=== PATIENT | female | born 1950 | race Caucasian/White ===

== ENCOUNTER 2020-04-03 04:51 | Inpatient (IN) | payer OTHER ==
[~2020-04-03] VITALS: Ht 157.5 cm; Wt 69.5 kg
[2020-04-03] MEDS ORDERED: CLOPIDOGREL BISULFATE 75 MG TAB ONE (05:17)
[2020-04-03] MEDS ORDERED: HEPARIN SODIUM (PORCINE) 5000 UNITS/ML 1ML VIAL ONE (05:17)
[2020-04-03] MEDS ORDERED: ATORVASTATIN 20 MG TAB ONE (05:17)
[2020-04-03] MEDS ORDERED: ASPirin 325 MG TAB ONE (05:18)
[2020-04-03] MEDS ORDERED: MORPHINE SULF INJ 2 MG/ML SYRINGE 1ML ONE (05:18)
[2020-04-03 05:29] LABS: Basophils # (auto) 0 10 ^3/uL (0-0.2); Basophils % (auto) 0.4 % (0.0-2.0); Eosinophils # (auto) 0.1 10 ^3/uL (0-0.8); Eosinophils % (auto) 1.3 % (0.0-7.0); Hemoglobin 13.9 g/dL (12.2-16.2); Lymphocytes # (auto) 1.4 10 ^3/uL (0.4-5.4); Lymphocytes % (auto) 16.6 % (10.0-50.0); Mean Corpuscular Hemoglobin 29.6 pg (28.0-32.0); Mean Corpuscular Hgb Conc. 33.1 g/dL (32.0-36.0); Mean Corpuscular Volume 89.4 fL (80.0-100.0); Monocytes # (auto) 0.6 10 ^3/uL (0-1.3); Monocytes % (auto) 6.5 % (0.0-12.0); Neutrophils # (auto) 6.4 10 ^3/uL (1.6-8.6); Neutrophils % (auto) 75.2 % (37.0-80.0); Nucleated Red Blood Cells % 0.1 %; Platelet Count (auto) 217 10^3/uL (140-450); Red Cell Distribution Width 14.8 % (11.8-14.3); White Blood Cell 8.5 10^3/uL (4.4-10.8)
[2020-04-03] MEDS ORDERED: ATORVASTATIN 20 MG TAB PO ONE (05:30)
[2020-04-03] MEDS ORDERED: HEPARIN 1,000 UNITS/ml 1ML VIAL IV ONE (05:30)
[2020-04-03] MEDS ORDERED: CLOPIDOGREL 300 MG TAB PO ONE (05:30)
[2020-04-03] MEDS ORDERED: MORPHINE SULF INJ 2 MG/ML SYRINGE 1ML IV ONE (05:30)
[2020-04-03] MEDS ORDERED: ASPirin 81 mg TAB ONE ×2 (05:34→07:08)
[2020-04-03] MEDS ORDERED: LIDOCAINE 2%HCL (LOCAL ANESTH.) INJ 20ML MDV ONE (05:37)
[2020-04-03] MEDS ORDERED: IODIXANOL 320MG/ML 100ML BTL IV ONE (05:37)
[2020-04-03] MEDS ORDERED: ANGIOMAX 250 MG VIAL IV ONE (05:38)
[2020-04-03] MEDS ORDERED: SODIUM CHL 0.9% 50 ML ONE (05:39)
[2020-04-03] MEDS ORDERED: fentaNYL CITRATE 100 MCG/2 ML VL ONE (05:39)
[2020-04-03] MEDS ORDERED: MIDAZOLAM HCL 1MG/1ML-2 ML VIAL ONE (05:39)
[2020-04-03] MEDS: ASPirin-EC 81 mg tab PO SCH ×2 (05:40→07:32)
[2020-04-03] MEDS ORDERED: diphenhdrAMINE HCL 50 MG/1 ML VL ONE (05:42)
[2020-04-03] MEDS ORDERED: FAMOTIDINE (10MG/ML) 2ML VL IV ONE (05:42)
[2020-04-03] MEDS ORDERED: methylPREDNISolone SOD SUCC 125 MG/2 ML VL ONE (05:42)
[2020-04-03 05:44] LABS: INR 0.92 (0.9-1.15); Partial Thromboplastin Time 22.2 sec (23.0-31.2)
[2020-04-03 06:00] LABS: Albumin 4.1 g/dL (3.4-5.0); BUN/Creatinine Ratio 13.7; Calcium 8.7 mg/dL (8.5-10.1); Potassium 4.7 mmol/L (3.5-5.1)
[2020-04-03 06:09] LABS: Bilirubin, Total 0.3 mg/dL (0.2-1.0); Total Protein 8.5 g/dL (6.4-8.2)
[2020-04-03] MEDS ORDERED: EPTIFIBATIDE INJ (2MG/ML) 10ML VIAL IV ONE (06:15)
[2020-04-03] MEDS ORDERED: CLOPIDOGREL 300 MG TAB ONE (07:08)
[2020-04-03] MEDS: SOD CHL 0.45% 1,000 ML IV SCH ×2 (07:45→21:38)
[2020-04-03] MEDS ORDERED: HYDROcodone-ACET 5/325MG TAB PO PRN (07:45)
[2020-04-03] MEDS ORDERED: DEXTROSE (50%) 50ML SYRG IV PRN (07:45)
[2020-04-03] MEDS ORDERED: ONDANSETRON HCL 4 MG/2 ML VIAL IV ONE (07:45)
[2020-04-03] MEDS ORDERED: ACETAMINOPHEN 500 MG TAB PO PRN (07:45)
[2020-04-03] MEDS ORDERED: ASPirin 325 MG TAB PO SCH (10:00)
[2020-04-03] MEDS: InsuLIN REG 1unit/0.01ml Soln (100units/ml) SC SCH ×3 (11:30→21:43)
[2020-04-03] MEDS: ACCU-CHEK COMFORT CURVE STRIP VI SCH ×3 (11:30→21:39)
[2020-04-03] MEDS ORDERED: FLUO40CA PO (13:11)
[2020-04-03] MEDS ORDERED: FLUT500M2 INH (13:11)
[2020-04-03] MEDS ORDERED: ISOS30TA4 PO (13:11)
[2020-04-03] MEDS ORDERED: ERGO1CAP12 PO (13:11)
[2020-04-03] MEDS ORDERED: METO25TA5 PO (13:11)
[2020-04-03] MEDS ORDERED: CLOP75TA28 PO (13:11)
[2020-04-03] MEDS ORDERED: MORPHINE SULF INJ 2 MG/ML SYRINGE 1ML IV PRN ×2 (13:15→15:00)
[2020-04-03] MEDS ORDERED: PANT40TA2 PO (13:20)
[2020-04-03] MEDS ORDERED: INSUINJ2 SC (13:20)
[2020-04-03] MEDS ORDERED: GABA300C10 PO (13:20)
[2020-04-03] MEDS ORDERED: DICY10CA PO (13:21)
[2020-04-03] MEDS ORDERED: ONDA-144 PO (13:23)
[2020-04-03] MEDS ORDERED: SPIR25TA PO (13:23)
[2020-04-03] MEDS ORDERED: ALBUAER3 IN (13:23)
[2020-04-03] MEDS ORDERED: NITR0.4S29 SL (13:23)
[2020-04-03] MEDS ORDERED: LID35TP EX (13:24)
[2020-04-03] MEDS ORDERED: CYCL0.09 OP (13:24)
[2020-04-03] MEDS ORDERED: LORA-205 PO (13:24)
[2020-04-03] MEDS ORDERED: ONDANSETRON HCL 4 MG/2 ML VIAL IV PRN (15:00)
[2020-04-03 15:32] LABS: Cholesterol 197 mg/dL (< 200); HDL Cholesterol 46 mg/dL (40-59); LDL Cholesterol 136 mg/dL (< 100); Triglycerides 134 mg/dL (< 150)
[2020-04-03] MEDS ORDERED: diphenhdrAMINE HCL 25 MG CAP PO ONE (21:15)
[2020-04-03] MEDS: GABAPENTIN 300 MG CAP PO SCH (21:38)
[2020-04-03] MEDS: ATORVASTATIN 20 MG TAB PO SCH (21:38)
[2020-04-03 22:00] VITALS: BP 130/73
[2020-04-03] MEDS: LORazepam 0.5 MG TAB PO PRN (22:13)
[2020-04-04 05:00] VITALS: BP 92/60
[2020-04-04 06:27] LABS: Basophils # (auto) 0 10 ^3/uL (0-0.2); Basophils % (auto) 0.1 % (0.0-2.0); Eosinophils # (auto) 0 10 ^3/uL (0-0.8); Hematocrit 33.1 % (36.0-46.0); Lymphocytes # (auto) 1.9 10 ^3/uL (0.4-5.4); Lymphocytes % (auto) 15.7 % (10.0-50.0); Mean Corpuscular Hemoglobin 29.2 pg (28.0-32.0); Mean Corpuscular Hgb Conc. 33.1 g/dL (32.0-36.0); Mean Corpuscular Volume 88.4 fL (80.0-100.0); Monocytes % (auto) 8.4 % (0.0-12.0); Neutrophils % (auto) 75.8 % (37.0-80.0); Platelet Count (auto) 197 10^3/uL (140-450); Red Blood Cells 3.75 10^6/uL (4.0-5.20); Red Cell Distribution Width 14.7 % (11.8-14.3); White Blood Cell 11.9 10^3/uL (4.4-10.8)
[2020-04-04 06:42] LABS: Potassium 4.5 mmol/L (3.5-5.1)
[2020-04-04 06:59] LABS: Calcium 8.7 mg/dL (8.5-10.1)
[2020-04-04] MEDS: InsuLIN REG 1unit/0.01ml Soln (100units/ml) SC SCH ×4 (07:00→22:00)
[2020-04-04] MEDS: ACCU-CHEK COMFORT CURVE STRIP VI SCH ×4 (07:29→22:00)
[2020-04-04 08:00] VITALS: BP 101/56
[2020-04-04] MEDS ORDERED: IOHEXOL 350 MG/ML 100ML IJ ONE ×2 (08:13→10:08)
[2020-04-04] MEDS ORDERED: LIDOCAINE 2%HCL (LOCAL ANESTH.) INJ 20ML MDV ONE (09:30)
[2020-04-04] MEDS ORDERED: methylPREDNISolone SOD SUCC 125 MG/2 ML VL ONE (09:44)
[2020-04-04] MEDS ORDERED: FAMOTIDINE (10MG/ML) 2ML VL IV ONE (09:45)
[2020-04-04] MEDS ORDERED: diphenhdrAMINE HCL 50 MG/1 ML VL ONE (09:45)
[2020-04-04] MEDS ORDERED: SODIUM CHL 0.9% 0 ML ONE (10:06)
[2020-04-04] MEDS ORDERED: NITROGLYCERIN 5MG/ML 10ML VIAL IV ONE (10:06)
[2020-04-04] MEDS ORDERED: MIDAZOLAM HCL 1MG/1ML-2 ML VIAL ONE (10:14)
[2020-04-04] MEDS ORDERED: fentaNYL CITRATE 100 MCG/2 ML VL ONE (10:15)
[2020-04-04] MEDS: ASPirin-EC 81 mg tab PO SCH (11:41)
[2020-04-04] MEDS: CLOPIDOGREL BISULFATE 75 MG TAB PO SCH (11:42)
[2020-04-04] MEDS: GABAPENTIN 300 MG CAP PO SCH ×2 (11:42→21:27)
[2020-04-04] MEDS: FLUoxetine HCL 20 MG CAP PO SCH (11:43)
[2020-04-04] MEDS: PANTOPRAZOLE 40 MG/10 ML VIAL INJ IV SCH (11:43)
[2020-04-04] MEDS: METOPROLOL SUCCINATE XL 50 MG TAB PO SCH (11:43)
[2020-04-04 16:00] VITALS: BP 120/62
[2020-04-04] MEDS: SOD CHL 0.45% 1,000 ML IV SCH ×2 (17:45→23:45)
[2020-04-04 20:00] VITALS: BP 101/66
[2020-04-04] MEDS: LORazepam 0.5 MG TAB PO PRN (21:24)
[2020-04-04] MEDS: ATORVASTATIN 20 MG TAB PO SCH (21:26)
[2020-04-04 22:02] VITALS: BP 103/56
[2020-04-05 05:00] VITALS: BP 113/66
[2020-04-05] MEDS: ACCU-CHEK COMFORT CURVE STRIP VI SCH ×2 (06:40→10:58)
[2020-04-05] MEDS: InsuLIN REG 1unit/0.01ml Soln (100units/ml) SC SCH ×2 (06:40→10:58)
[2020-04-05] MEDS: METOPROLOL SUCCINATE XL 50 MG TAB PO SCH (10:00)
[2020-04-05] MEDS: CLOPIDOGREL BISULFATE 75 MG TAB PO SCH (10:00)
[2020-04-05] MEDS: ASPirin-EC 81 mg tab PO SCH (10:49)
[2020-04-05] MEDS: PANTOPRAZOLE 40 MG/10 ML VIAL INJ IV SCH (10:49)
[2020-04-05] MEDS: GABAPENTIN 300 MG CAP PO SCH (10:49)
[2020-04-05] MEDS: FLUoxetine HCL 20 MG CAP PO SCH (10:50)
[2020-04-05 11:37] VITALS: BP 108/56
[2020-04-05] MEDS: SOD CHL 0.45% 1,000 ML IV SCH (13:05)
== END 2020-04-05 14:14 | disposition home or self-care (01) | DRG 229 ==
LOC: ER 04:51 → CATH 04:52 → TELE 04:53 → TELE-CENTR 18:14
PROVIDERS: ADMIT Specialist; ATTEND Specialist
PROC: 4A023N7 Measurement of Cardiac Sampling and Pressure, Left Heart, Percutaneous Approach (ICD-10-PCS; principal; 2020-04-03)
PROC: 02C00ZZ Extirpation of Matter from Coronary Artery, One Artery, Open Approach (ICD-10-PCS; 2020-04-03)
PROC: 027035Z Dilation of Coronary Artery, One Artery with Two Drug-eluting Intraluminal Devices, Percutaneous Approach (ICD-10-PCS; 2020-04-03)
PROC: B2151ZZ Fluoroscopy of Left Heart using Low Osmolar Contrast (ICD-10-PCS; 2020-04-03)
PROC: B2111ZZ Fluoroscopy of Multiple Coronary Arteries using Low Osmolar Contrast (ICD-10-PCS; 2020-04-03)
PROC: B41F1ZZ Fluoroscopy of Right Lower Extremity Arteries using Low Osmolar Contrast (ICD-10-PCS; 2020-04-03)
DX: I21.19 ST elevation (STEMI) myocardial infarction involving other coronary artery of inferior wall (principal); D64.9 Anemia, unspecified; E11.22 Type 2 diabetes mellitus with diabetic chronic kidney disease; E78.5 Hyperlipidemia, unspecified; F32.9 Major depressive disorder, single episode, unspecified; F41.9 Anxiety disorder, unspecified; G62.9 Polyneuropathy, unspecified; I13.10 Hypertensive heart and chronic kidney disease without heart failure, with stage 1 through stage 4 chronic kidney disease, or unspecified chronic kidney disease; I25.10 Atherosclerotic heart disease of native coronary artery without angina pectoris; N18.30 Chronic kidney disease, stage 3 unspecified; Z79.02 Long term (current) use of antithrombotics/antiplatelets; Z79.4 Long term (current) use of insulin; Z79.51 Long term (current) use of inhaled steroids; Z79.82 Long term (current) use of aspirin; Z79.899 Other long term (current) drug therapy; Z90.710 Acquired absence of both cervix and uterus; Z95.5 Presence of coronary angioplasty implant and graft; Z98.84 Bariatric surgery status; Z90.49 Acquired absence of other specified parts of digestive tract; Z98.891 History of uterine scar from previous surgery; Z88.8 Allergy status to other drugs, medicaments and biological substances; Z91.041 Radiographic dye allergy status; Z98.51 Tubal ligation status; Z95.818 Presence of other cardiac implants and grafts; Z83.3 Family history of diabetes mellitus; Z82.49 Family history of ischemic heart disease and other diseases of the circulatory system
CPT/HCPCS: 36415; 71045; 80048; 80053; 80061; 82962; 83036; 83880; 84484; 85025; 85610; 85730; 86850; 86900; 86901; 93005; 93306; 99152; 99153; 99291; C1874; C9113; G0378; J1815; J2250; J3490; Q9967

== ENCOUNTER 2020-05-23 05:33 | Emergency (ER) | payer OTHER ==
[~2020-05-23] VITALS: Ht 157.5 cm; Wt 63.5 kg
[~2020-05-23 05:33] MED LIST: ALBUAER3 IN; CLOP75TA28 PO; CYCL0.09 OP; DICY10CA PO; ERGO1CAP12 PO; FLUO40CA PO; FLUT500M2 INH; GABA300C10 PO; INSUINJ2 SC; ISOS1TAB28 PO; LID35TP EX; LORA-205 PO; METO25TA5 PO; NITR0.4S29 SL; ONDA-144 PO; PANT40TA2 PO; SPIR25TA PO
[2020-05-23] MEDS ORDERED: ASPirin 81 mg TAB PO ONE ×2 (06:00)
[2020-05-23] MEDS ORDERED: SPIRONOLACTONE 25 MG TAB PO ONE (06:15)
[2020-05-23] MEDS ORDERED: METOPROLOL TARTRATE 25 MG TAB PO ONE (06:15)
[2020-05-23 06:25] LABS: Basophils # (auto) 0 10 ^3/uL (0-0.2); Basophils % (auto) 0.5 % (0.0-2.0); Eosinophils # (auto) 0.2 10 ^3/uL (0-0.8); Eosinophils % (auto) 3.8 % (0.0-7.0); Hematocrit 38.9 % (36.0-46.0); Lymphocytes % (auto) 35.6 % (10.0-50.0); Mean Corpuscular Hemoglobin 29.3 pg (28.0-32.0); Mean Corpuscular Hgb Conc. 33.4 g/dL (32.0-36.0); Mean Corpuscular Volume 87.5 fL (80.0-100.0); Monocytes # (auto) 0.5 10 ^3/uL (0-1.3); Monocytes % (auto) 8.3 % (0.0-12.0); Neutrophils # (auto) 2.9 10 ^3/uL (1.6-8.6); Neutrophils % (auto) 51.8 % (37.0-80.0); Nucleated Red Blood Cells % 0.2 %; Red Blood Cells 4.45 10^6/uL (4.0-5.20); Red Cell Distribution Width 14.5 % (11.8-14.3); White Blood Cell 5.5 10^3/uL (4.4-10.8)
[2020-05-23 06:31] LABS: Alanine Aminotransferase 31 U/L (13-56); Albumin 3.8 g/dL (3.4-5.0); Anion Gap 8 (5-15); Aspartate Aminotransferase 25 U/L (15-37); BUN/Creatinine Ratio 10.7; Blood Urea Nitrogen 11 mg/dL (7-18); Carbon Dioxide 25 mmol/L (21-32); Chloride 104 mmol/L (98-107); GFR African American 69 mL/min; GFR Non-African American 57 mL/min; Glucose 121 mg/dL (74-106); Magnesium 2.2 mg/dL (1.6-2.6); Potassium 4.6 mmol/L (3.5-5.1); Sodium 137 mmol/L (136-145)
[2020-05-23 06:33] LABS: INR 0.97 (0.9-1.15); Partial Thromboplastin Time 22.8 sec (23.0-31.2)
[2020-05-23 06:39] LABS: Alkaline Phosphatase 133 U/L (45-117); Bilirubin, Total 0.6 mg/dL (0.2-1.0); Total Protein 7.6 g/dL (6.4-8.2)
[2020-05-23] MEDS ORDERED: ONDANSETRON HCL 4 MG/2 ML VIAL IV ONE (07:30)
[2020-05-23] MEDS ORDERED: MORPHINE SULFATE INJECTION 2 MG/ML SYRG IV ONE (07:30)
[2020-05-23 07:46] LABS: Urine Bacteria NONE SEEN /hpf (None Seen); Urine Blood Negative /uL (Negative); Urine Specific Gravity 1.005 (1.001-1.035); Urine WBC 1 /hpf (0 - 5)
[2020-05-23 11:03] VITALS: BP 133/55
== END 2020-05-23 11:19 | disposition home or self-care (01) ==
LOC: ER 05:33
DX: R00.1 Bradycardia, unspecified (principal); R07.89 Other chest pain; N39.0 Urinary tract infection, site not specified; I50.9 Heart failure, unspecified; I11.0 Hypertensive heart disease with heart failure; E11.9 Type 2 diabetes mellitus without complications; E78.5 Hyperlipidemia, unspecified; Z90.49 Acquired absence of other specified parts of digestive tract; Z90.710 Acquired absence of both cervix and uterus
CPT/HCPCS: 36415; 71045; 80053; 81001; 82962; 83735; 83880; 84443; 84484; 85025; 85610; 85730; 93005; 96374; 96375; 99285; J2270; J2405

== ENCOUNTER 2023-08-06 16:26 | Emergency (ER) | payer OTHER ==
[~2023-08-06] VITALS: Ht 157.5 cm; Wt 56.8 kg
[~2023-08-06 16:26] MED LIST changes: +GABA-1250 PO; -GABA300C10 PO
[2023-08-06] MEDS: NITROGLYCERIN 0.4 MG SL TAB SL ONE (17:09)
[2023-08-06 17:20] LABS: Basophils # (auto) 0 10 ^3/uL (0-0.2); Basophils % (auto) 0.3 % (0.0-2.0); Eosinophils # (auto) 0.2 10 ^3/uL (0-0.8); Eosinophils % (auto) 2.6 % (0.0-7.0); Hematocrit 36.4 % (36.0-46.0); Hemoglobin 11.8 g/dL (12.2-16.2); Lymphocytes # (auto) 2.8 10 ^3/uL (0.4-5.4); Lymphocytes % (auto) 37.1 % (10.0-50.0); Mean Corpuscular Hemoglobin 28.5 pg (28.0-32.0); Mean Corpuscular Hgb Conc. 32.5 g/dL (32.0-36.0); Mean Corpuscular Volume 87.8 fL (80.0-100.0); Monocytes # (auto) 0.7 10 ^3/uL (0-1.3); Monocytes % (auto) 9.1 % (0.0-12.0); Neutrophils # (auto) 3.8 10 ^3/uL (1.6-8.6); Neutrophils % (auto) 50.9 % (37.0-80.0); Red Blood Cells 4.15 10^6/uL (4.0-5.20); Red Cell Distribution Width 14.8 % (11.8-14.3); White Blood Cell 7.5 10^3/uL (4.4-10.8)
[2023-08-06 17:43] LABS: Alanine Aminotransferase 26 U/L (7-40); Albumin 4.4 g/dL (3.2-4.8); Alkaline Phosphatase 114 U/L (46-116); Anion Gap 5 (5-15); Aspartate Aminotransferase 25 U/L (13-40); BUN/Creatinine Ratio 17.5 (10.0-20.0); Blood Urea Nitrogen 21 mg/dL (9-23); Calcium 9.4 mg/dL (8.5-10.1); Carbon Dioxide 25 mmol/L (20-30); Chloride 100 mmol/L (98-107); Glucose 104 mg/dL (74-106); Potassium 4.8 mmol/L (3.5-5.1); Sodium 130 mmol/L (136-145)
[2023-08-06 17:44] LABS: Bilirubin, Total 0.3 mg/dL (0.2-1.0); Total Protein 6.7 g/dL (5.7-8.2)
[2023-08-06 18:40] LABS: Urine Bacteria FEW /hpf (None Seen); Urine Blood Negative /uL (Negative); Urine Clarity Clear (Clear); Urine Color Colorless (Yellow); Urine Protein, UAD Negative (Negative); Urine Specific Gravity 1.006 (1.001-1.035); Urine Urobilinogen Normal (Negative); Urine WBC 3 /hpf (0 - 5)
[2023-08-06] MEDS ORDERED: ACET500T58 PO (20:02)
[2023-08-06] MEDS ORDERED: NITR-87 PO (20:02)
[2023-08-06] MEDS: NITROFURANTOIN 100 mg CAP PO ONE (20:31)
[2023-08-06 20:33] VITALS: BP 148/88; PULSE 53; RESP 17; TEMP 97.6; O2SAT 100
== END 2023-08-06 20:34 | disposition home or self-care (01) ==
LOC: ER 16:26
DX: R07.89 Other chest pain (principal); N39.0 Urinary tract infection, site not specified; R42 Dizziness and giddiness; J45.909 Unspecified asthma, uncomplicated; E11.9 Type 2 diabetes mellitus without complications; E78.5 Hyperlipidemia, unspecified; I10 Essential (primary) hypertension; Z90.49 Acquired absence of other specified parts of digestive tract; Z90.710 Acquired absence of both cervix and uterus; Z88.6 Allergy status to analgesic agent; Z91.041 Radiographic dye allergy status
CPT/HCPCS: 36415; 71045; 80053; 81001; 83735; 83880; 84484; 85025; 93005